=== PATIENT | female | born 1970 | race Caucasian/White ===

== ENCOUNTER → 2018-07-22 | Outpatient (CLI) | payer OTHER ==
[2014-02-16 10:45] VITALS: BP 130/93
[~2018-07-22] MED LIST: BYETTA 5MC300 MCG/SY SC; GLUCOPHAGE500 MG/TAB PO; LEVEMIR FLEX100 U/ML SQ; VICTOZA 3-0.6 MG/0.1 SQ
[2018-07-22 11:31] LABS: EOS # 0.3 (0.04-0.40); EOS % 1.9 % (1.0-5.0); HEMATOCRIT 44.2 % (37.0-47.0); LYMPH# 1.8 (1.50-4.00); MEAN CELL VOLUME 86 fl (78-100); MEAN CORPUSCULAR HEMOGLOBIN 29 pg (27-31); MEAN CORPUSCULAR HGB CONC 34 g/dL (33-37); MEAN PLATELET VOLUME 9.3 fl (7.4-10.4); PLATELET COUNT 341 K/mm3 (130-400); RED BLOOD COUNT 5.13 M/mm3 (4.10-5.30); RED CELL DISTRIBUTION WIDTH 13.6 % (11.5-14.5)
[2018-07-22 11:55] LABS: ALBUMIN 4.3 g/dL (3.5-5.0); CALCIUM 9.4 mg/dL (8.4-10.2); POTASSIUM 4.5 mmol/L (3.6-5.0); TOTAL BILIRUBIN 0.7 mg/dL (0.2-1.3); TOTAL PROTEIN 7.8 g/dL (6.3-8.2)
== END ==
LOC: RAD 11:19
PROVIDERS: Family Medicine
DX: R10.9 Unspecified abdominal pain (principal); R11.0 Nausea; E78.2 Mixed hyperlipidemia; E11.8 Type 2 diabetes mellitus with unspecified complications; K21.9 Gastro-esophageal reflux disease without esophagitis; Z90.49 Acquired absence of other specified parts of digestive tract

== ENCOUNTER → 2018-07-23 | Outpatient (CLI) | payer OTHER ==
[~2018-07-23] VITALS: Ht 170.2 cm; Wt 141.4 kg
[2018-07-23 10:05] VITALS: BP 130/75
--- NOTE | 2018-07-23 14:10 | NUR ---
During outpatient stay, instilled 2 liters soapsuds enema with moderate results. Stool has changed from a pungent, dark green to a less odorous, light yellow/green liquid. Pt reports noting small amounts hard, formed stool, but mostly liquid with each trip into . Pt continues to feel abdominal discomfort, cramping and feels slightly nauseated but reports that she wants to go home, take miralax and attempt to clear remaining stool at home. Contact Dr. Ocampo, who agrees that pt may return to home. Pt instructed to stop at clinic desk upon d/c to pickler helper instructions.
== END ==
LOC: RAD 08:48
DX: R10.9 Unspecified abdominal pain (principal); R11.0 Nausea
CPT/HCPCS: J1815

== ENCOUNTER → 2018-07-27 | Outpatient (CLI) | payer OTHER ==
[2018-07-23 10:05] VITALS: BP 130/75
== END ==
LOC: LAB 17:06
DX: E11.69 Type 2 diabetes mellitus with other specified complication (principal); K59.00 Constipation, unspecified

== ENCOUNTER → 2019-10-31 | Outpatient (CLI) | payer OTHER ==
[2018-07-23 10:05] VITALS: BP 130/75
[2019-10-31 15:39] LABS: EOS # 0.4 (0.04-0.40); EOS % 3.6 % (1.0-5.0); HEMOGLOBIN 13.2 g/dL (12.5-16.0); LYMPH# 2.2 (1.50-4.00); MEAN CELL VOLUME 86 fl (78-100); MEAN CORPUSCULAR HEMOGLOBIN 29 pg (27-31); MEAN CORPUSCULAR HGB CONC 33 g/dL (33-37); MEAN PLATELET VOLUME 9.2 fl (7.4-10.4); MONO # 0.7 (0.20-0.80); NEU # 6.6 (1.40-6.50); PLATELET COUNT 352 K/mm3 (130-400); RED BLOOD COUNT 4.63 M/mm3 (4.10-5.30); RED CELL DISTRIBUTION WIDTH 13.9 % (11.5-14.5); WHITE BLOOD COUNT 9.9 K/mm3 (4.8-10.8)
[2019-10-31 15:48] LABS: ALBUMIN 4.1 g/dL (3.5-5.0); POTASSIUM 3.8 mmol/L (3.5-5.1)
[2019-10-31 15:49] LABS: CALCIUM 10.3 mg/dL (8.3-10.5)
[2019-10-31 15:51] LABS: TOTAL PROTEIN 7.3 g/dL (6.4-8.3)
[2019-10-31 15:52] LABS: TOTAL BILIRUBIN 0.3 mg/dL (0.2-1.2)
[2019-10-31 16:40] LABS: ERYTHROCYTE SEDIMENTATION RATE 24 mm/hr (0-20)
[2019-10-31 17:07] LABS: URINE APPEARANCE CLEAR; URINE COLOR YELLOW; URINE PROTEIN(semi-quant) TRACE mg/dL (NEGATIVE)
[2019-10-31 17:08] LABS: URINE BILIRUBIN NEGATIVE (NEGATIVE); URINE BLOOD NEGATIVE (NEGATIVE); URINE GLUCOSE 50 mg/dL mg/dL (NEGATIVE); URINE KETONE NEGATIVE (NEGATIVE); URINE LEUKOCYTE ESTERASE NEGATIVE (NEGATIVE); URINE NITRATE NEGATIVE (NEGATIVE); URINE UROBILINOGEN NORMAL (NORMAL)
[2019-10-31 17:09] LABS: URINE MUCUS PRESENT (NOT PRESENT)
== END ==
LOC: LAB 15:17
PROVIDERS: Internal Medicine
DX: Z00.00 Encounter for general adult medical examination without abnormal findings (principal); E11.65 Type 2 diabetes mellitus with hyperglycemia; E78.2 Mixed hyperlipidemia

== ENCOUNTER → 2020-01-17 | Outpatient (CLI) | payer OTHER ==
[2018-07-23 10:05] VITALS: BP 130/75
== END ==
LOC: MAMMO 12-27 10:45
DX: Z12.31 Encounter for screening mammogram for malignant neoplasm of breast (principal)

== ENCOUNTER → 2020-05-01 | Outpatient (CLI) | payer OTHER ==
[2018-07-23 10:05] VITALS: BP 130/75
[2020-05-01 09:28] LABS: EOS # 0.2 (0.04-0.40); EOS % 3.4 % (1.0-5.0); HEMATOCRIT 42.1 % (37.0-47.0); HEMOGLOBIN 13.8 g/dL (12.5-16.0); LYMPH# 1.8 (1.50-4.00); MEAN CELL VOLUME 89 fl (78-100); MEAN CORPUSCULAR HEMOGLOBIN 29 pg (27-31); MEAN CORPUSCULAR HGB CONC 33 g/dL (33-37); MEAN PLATELET VOLUME 9.6 fl (7.4-10.4); MONO # 0.5 (0.20-0.80); NEU # 3.7 (1.40-6.50); PLATELET COUNT 314 K/mm3 (130-400); RED BLOOD COUNT 4.75 M/mm3 (4.10-5.30); RED CELL DISTRIBUTION WIDTH 14.6 % (11.5-14.5); WHITE BLOOD COUNT 6.2 K/mm3 (4.8-10.8)
[2020-05-01 09:42] LABS: ALBUMIN 4.5 g/dL (3.5-5.0); POTASSIUM 4.9 mmol/L (3.5-5.1)
[2020-05-01 09:44] LABS: CALCIUM 9.6 mg/dL (8.3-10.5)
[2020-05-01 09:45] LABS: TOTAL PROTEIN 7.5 g/dL (6.4-8.3)
[2020-05-01 09:47] LABS: TOTAL BILIRUBIN 0.6 mg/dL (0.2-1.2)
== END ==
LOC: LAB 09:13
PROVIDERS: Internal Medicine
DX: Z00.00 Encounter for general adult medical examination without abnormal findings (principal); E11.9 Type 2 diabetes mellitus without complications

== ENCOUNTER → 2020-05-14 | Outpatient (CLI) | payer OTHER ==
[2018-07-23 10:05] VITALS: BP 130/75
== END ==
LOC: LAB 11:58
DX: Z20.828 Contact with and (suspected) exposure to other viral communicable diseases (principal)

== ENCOUNTER → 2020-11-16 | Outpatient (CLI) | payer OTHER ==
[2018-07-23 10:05] VITALS: BP 130/75
== END ==
LOC: LAB 08:01
DX: Z20.828 Contact with and (suspected) exposure to other viral communicable diseases (principal)

== ENCOUNTER → 2021-06-28 | Outpatient (REF) | LOC: LAB 08:29 | DX: U07.1 COVID-19 (principal) ==

== ENCOUNTER → 2021-09-04 | Outpatient (CLI) | payer OTHER ==
[2021-09-04 10:49] LABS: BASO # 0.06 K/mm3 (0.02-0.10); EOS # 0.57 K/mm3 (0.04-0.40); EOS % 6.7 % (1.0-5.0); HEMATOCRIT 43.6 % (37.0-47.0); HEMOGLOBIN 14.3 g/dL (12.5-16.0); LYMPH# 2.05 K/mm3 (1.50-4.00); MEAN CELL VOLUME 89 fl (78-100); MEAN CORPUSCULAR HEMOGLOBIN 29 pg (27-31); MEAN CORPUSCULAR HGB CONC 33 g/dL (33-37); MONO # 0.57 K/mm3 (0.20-0.80); NEU # 5.19 K/mm3 (1.40-6.50); PLATELET COUNT 337 K/mm3 (130-400); RED BLOOD COUNT 4.92 M/mm3 (4.10-5.30); RED CELL DISTRIBUTION WIDTH 13.8 % (11.5-14.5); WHITE BLOOD COUNT 8.5 K/mm3 (4.8-10.8)
[2021-09-04 10:55] LABS: ALBUMIN 4.1 g/dL (3.5-5.0)
[2021-09-04 10:56] LABS: CALCIUM 9.7 mg/dL (8.3-10.5)
[2021-09-04 10:58] LABS: TOTAL PROTEIN 7.4 g/dL (6.4-8.3)
[2021-09-04 11:00] LABS: TOTAL BILIRUBIN 0.4 mg/dL (0.2-1.2)
[2021-09-04 11:12] LABS: URINE APPEARANCE CLEAR; URINE BILIRUBIN NEGATIVE (NEGATIVE); URINE BLOOD NEGATIVE (NEGATIVE); URINE COLOR YELLOW; URINE GLUCOSE NEGATIVE (NEGATIVE); URINE KETONE NEGATIVE (NEGATIVE); URINE LEUKOCYTE ESTERASE NEGATIVE (NEGATIVE); URINE NITRATE NEGATIVE (NEGATIVE); URINE PROTEIN(semi-quant) NEGATIVE (NEGATIVE); URINE UROBILINOGEN NORMAL (NORMAL)
[2021-09-04 11:13] LABS: URINE MUCUS PRESENT (NOT PRESENT)
== END ==
LOC: LAB 10:16
PROVIDERS: Internal Medicine
DX: Z00.00 Encounter for general adult medical examination without abnormal findings (principal)

== ENCOUNTER → 2021-09-23 | Outpatient (CLI) | payer OTHER | LOC: LAB 16:26 | DX: K90.9 Intestinal malabsorption, unspecified (principal) ==

== ENCOUNTER 2023-07-15 09:06 | Outpatient (RCR) | payer OTHER | END 2023-07-30 | disposition home or self-care (01) | LOC: PT | DX: M25.512 Pain in left shoulder (principal) ==